=== PATIENT | male | born 1995 | race Caucasian/White ===

== ENCOUNTER 2017-01-31 21:14 | Emergency (ER) | payer OTHER ==
[~2017-01-31] VITALS: Ht 190.5 cm; Wt 85.6 kg
[2017-01-31 21:43] VITALS: BP 147/100
[2017-01-31] MEDS ORDERED: MAALOX/HYOSCYAMINE/LIDOCAINE 45 ML BOTTLE ONE (22:11)
[2017-01-31] MEDS ORDERED: MAALOX/HYOSCYAMINE/LIDOCAINE 45 ML BOTTLE PO ONE (22:30)
== END 2017-01-31 23:05 | disposition home or self-care (01) ==
LOC: ED 22:07
DX: S10.11XA Abrasion of throat, initial encounter (principal); K20.8 Other esophagitis; Z88.8 Allergy status to other drugs, medicaments and biological substances; X58.XXXA Exposure to other specified factors, initial encounter; Y93.89 Activity, other specified; Y92.89 Other specified places as the place of occurrence of the external cause; Y99.9 Unspecified external cause status
CPT/HCPCS: 70360; 71020; 99284

== ENCOUNTER 2020-01-11 11:24 | Emergency (ER) | payer OTHER ==
[~2020-01-11] VITALS: Ht 190.5 cm; Wt 95.2 kg
--- NOTE | 2020-01-11 11:49 | NUR ---
PT AMBULATED BACK TO THE ROOM W/ A STEADY GAIT.
[2020-01-11] MEDS ORDERED: SODIUM CHLORIDE 0.9% 1,000ML IVBOLUS ONE (12:00)
--- NOTE | 2020-01-11 12:02 | NUR ---
THIS IS A 24 YO M W/ C/O DIZZINESS, CP/LUQ PAIN X2 DAYS, NIGHT SWEATS AND NAUSEA. PT DENIES VOMITING/PAIN W/ URINATION/SOB. PT TACHYCARDIC, OTHER VS WDL. URINE COLLECTED AND SENT TO LAB. CONNECTED TO ALL MONITORING, CALL LIGHT IN REACH. RUSSELL GUNTER AT BEDSIDE.
[2020-01-11 12:16] LABS: BASOPHILS # (AUTO) 0.02 x10^3/uL (0-0.1); BASOPHILS % (AUTO) 0 % (0-1); EOSINOPHILS % (AUTO) 0 % (1-7); LYMPHOCYTES # (AUTO) 1.38 x10^3/uL (1-3.4); LYMPHOCYTES % (AUTO) 15 % (22-44); MD NO; MEAN CORPUSCULAR HEMOGLOBIN 30.9 pg (27.5-34.5); MEAN CORPUSCULAR HGB CONC 33.3 g/dL (33.2-36.2); MEAN CORPUSCULAR VOLUME 92.7 fL (81-97); MEAN PLATELET VOLUME 9.3 fL (7.4-10.4); MONOCYTES % (AUTO) 13 % (2-9); NEUTROPHILS # (AUTO) 6.39 x10^3/uL (1.8-6.8); NEUTROPHILS % (AUTO) 71 % (42-75); PLATELET COUNT 140 x10^3/uL (130-400); RED BLOOD COUNT 5.87 x10^6/uL (4.38-5.82); RED CELL DISTRIBUTION WIDTH 12.6 % (9.4-14.8)
[2020-01-11 12:29] LABS: ALANINE AMINOTRANSFERASE 29 U/L (12-78); ALBUMIN 4.1 g/dL (3.4-5.0); ANION GAP 7 mmol/L (5-15); CHLORIDE 103 mmol/L (98-107)
[2020-01-11 12:33] LABS: ALKALINE PHOSPHATASE 42 U/L (45-117); BILIRUBIN,TOTAL 2.4 mg/dL (0.2-1.0); TOTAL PROTEIN 8.7 g/dL (6.4-8.2); TROPONIN I < 0.015 ng/mL (0.000-0.045)
--- NOTE | 2020-01-11 12:58 | NUR ---
ALL TESTS RESULTED. PT IS UP FOR RECHECK AT THIS TIME.
--- NOTE | 2020-01-11 14:12 | NUR ---
PT RESTING ON GUNREY W/ CALL LIGHT IN REACH, RESP EVEN AND UNLABORED, NADN. AWAITING CTA.
[2020-01-11] MEDS ORDERED: ONDANSETRON 2MG/ML, 2ML ONE (14:14)
[2020-01-11] MEDS ORDERED: KETOROLAC 30 MG/1 ML ONE (14:14)
[2020-01-11] MEDS ORDERED: ONDANSETRON 2MG/ML, 2ML IVPush ONE (14:30)
[2020-01-11] MEDS ORDERED: KETOROLAC 30 MG/1 ML IVPush ONE (14:30)
--- NOTE | 2020-01-11 14:44 | NUR ---
PT TO CT.
[2020-01-11] MEDS ORDERED: OMNIPAQUE 350 MG/ML, 100ML BOTTLE ONE (14:57)
[2020-01-11 15:08] VITALS: BP 137/81
== END 2020-01-11 15:39 | disposition home or self-care (01) ==
LOC: ED 13:02
DX: B34.9 Viral infection, unspecified (principal); Z20.828 Contact with and (suspected) exposure to other viral communicable diseases; R07.89 Other chest pain; H57.12 Ocular pain, left eye; R10.9 Unspecified abdominal pain; R42 Dizziness and giddiness; R00.0 Tachycardia, unspecified
CPT/HCPCS: 36415; 71045; 71275; 76700; 80053; 83690; 83880; 84484; 85025; 85379; 93005; 96361; 96374; 96375; 99285; J1885; J2405; J7030; Q9967; U0001